=== PATIENT | male | born 1950 | race Caucasian/White ===

== ENCOUNTER 2021-07-27 07:59 | Inpatient (IN) ==
[2021-07-27 07:45] LABS: INR 1.1; Prothrombin Time 12.8 Seconds (9.4-12.1)
[2021-07-27 07:49] LABS: Magnesium 2.2 mg/dL (1.6-2.6)
[2021-07-27 07:50] LABS: BUN/Creatinine Ratio 26 (6-26); Blood Urea Nitrogen 26 mg/dL (8-23); Calcium 8.6 mg/dL (8.6-10.3); Carbon Dioxide 23 mEq/L (23-29); Chloride 98 mEq/L (98-107); Glucose 268 mg/dL (70-105); Osmolality,Calculated 284 (280-300); Potassium 4.2 mEq/L (3.5-5.1); Sodium 130 mEq/L (136-145); eGFR For African Americans > 60 (> 60); eGFR For Non-African Americans > 60 (> 60)
[~2021-07-27 07:59] MED LIST: *HR* Dextrose 50 % in Water (Vial) 50 ML VIAL IVP PRN; Acetaminophen 325 MG TABLET PO PRN; D5% in Water 1,000 ML IVC PRN; Dextrose Gel 15 GM/37.5 ML TUBE PO PRN; Naloxone 0.4 MG/ML INJ IVP PRN; Ondansetron 4 MG/2 ML VIAL IVP PRN
[2021-07-27] MEDS ORDERED: Aspirin 325 MG TABLET PO ONE (08:00)
[2021-07-27 08:06] LABS: Troponin I 0.35 ng/mL (< 0.04)
[2021-07-27 09:43] LABS: Basophils # 0.1 K/mcL (0.0-0.2); Basophils % 1.1 %; Hematocrit 41.6 % (37.5-50.1); Hemoglobin 13.8 g/dL (12.9-16.9); Immature Granulocytes % 4.5 % (0-4); Lymphocytes # 0.6 K/mcL (0.6-4.6); Lymphocytes % 8.2 %; Mean Corpuscular HGB Conc 33.2 g/dL (31.6-35.5); Mean Corpuscular Hemoglobin 30.2 pg (28.0-33.3); Mean Platelet Volume 10.7 fL (9.4-12.4); Monocytes % 13.8 %; Neutrophils # 5.1 K/mcL (1.6-8.9); Platelet Count 191 K/mcL (140-400); Red Blood Count 4.57 M/mcL (4.19-5.50); Red Cell Distribution Width 15.4 % (11.5-14.5); Segmented Neutrophils % 72.4 %
[2021-07-27] MEDS: cefTRIAXone 2,000 MG in Water for inj. (sterile) 20 ML IVP SCH (09:58)
[2021-07-27] MEDS: Azithromycin 500 MG in 0.9 % Sodium Chloride 250 ML IVPB SCH (09:58)
[2021-07-27] MEDS: Furosemide 20 MG/2 ML VIAL IVP SCH ×2 (09:59→16:47)
[2021-07-27] MEDS: Insulin LISPRO 300 UNITS/3 ML VIAL SUBQ SCH ×4 (10:00→21:22)
[2021-07-27] MEDS: Insulin DETEMIR 100 UNIT/ML X5UNITS SUBQ SCH ×2 (10:30→21:23)
[2021-07-27] MEDS ORDERED: Haloperidol Lactate 5 MG/ML VIAL IVP ONE (10:51)
[2021-07-27] MEDS ORDERED: Ipratropium 1 PUFF INHALER IH SCH (12:00)
[2021-07-27] MEDS: Ipratropium 1 PUFF INHALER IH SCH ×5 (12:25→23:56)
[2021-07-27] MEDS: Spironolactone 25 MG TABLET PO SCH (16:43)
[2021-07-27] MEDS: carvediloL 25 MG TABLET PO SCH ×2 (16:43→21:22)
[2021-07-27] MEDS: *HR* Rivaroxaban 10 MG TABLET PO SCH (16:43)
[2021-07-28] MEDS: Ipratropium 1 PUFF INHALER IH SCH ×5 (04:29→21:34)
[2021-07-28] MEDS: Azithromycin 500 MG in 0.9 % Sodium Chloride 250 ML IVPB SCH (09:01)
[2021-07-28] MEDS: Cholecalciferol (D-3) 1,000 UNIT (25MCG) TABLET PO SCH (09:02)
[2021-07-28] MEDS: cefTRIAXone 2,000 MG in Water for inj. (sterile) 20 ML IVP SCH (09:02)
[2021-07-28] MEDS: carvediloL 25 MG TABLET PO SCH ×2 (09:02→15:48)
[2021-07-28] MEDS: Sennosides/Docusate Sodium TABLET PO SCH ×2 (09:02→21:42)
[2021-07-28] MEDS: Aspirin 81 MG TAB.CHEW PO SCH (09:03)
[2021-07-28] MEDS: Gabapentin 300 MG CAPSULE PO SCH ×3 (09:03→21:43)
[2021-07-28] MEDS: Spironolactone 25 MG TABLET PO SCH (09:04)
[2021-07-28] MEDS: Insulin LISPRO 300 UNITS/3 ML VIAL SUBQ SCH ×4 (09:04→21:51)
[2021-07-28] MEDS: Furosemide 20 MG/2 ML VIAL IVP SCH ×2 (09:04→15:48)
[2021-07-28] MEDS: polyethylene glycoL 3350 17 GM POWD.PACK PO SCH (09:21)
[2021-07-28] MEDS: Insulin DETEMIR 100 UNIT/ML X5UNITS SUBQ SCH ×2 (09:26→21:44)
[2021-07-28 09:49] LABS: BUN/Creatinine Ratio 29 (6-26); Blood Urea Nitrogen 26 mg/dL (8-23); Calcium 8.8 mg/dL (8.6-10.3); Carbon Dioxide 24 mEq/L (23-29); Chloride 99 mEq/L (98-107); Glucose 147 mg/dL (70-105); Osmolality,Calculated 281 (280-300); Potassium 4.2 mEq/L (3.5-5.1); Sodium 132 mEq/L (136-145); Troponin I 0.17 ng/mL (< 0.04); eGFR For African Americans > 60 (> 60); eGFR For Non-African Americans > 60 (> 60)
[2021-07-28 11:53] LABS: Basophils # 0.1 K/mcL (0.0-0.2); Basophils % 0.8 %; Hematocrit 45.6 % (37.5-50.1); Hemoglobin 15.3 g/dL (12.9-16.9); Immature Granulocytes % 3.7 % (0-4); Lymphocytes # 0.8 K/mcL (0.6-4.6); Lymphocytes % 6.8 %; Mean Corpuscular HGB Conc 33.6 g/dL (31.6-35.5); Mean Corpuscular Hemoglobin 29.9 pg (28.0-33.3); Mean Corpuscular Volume 89.2 fL (83.0-100.0); Mean Platelet Volume 11.2 fL (9.4-12.4); Monocytes # 0.7 K/mcL (0.0-1.3); Monocytes % 6.1 %; Nucleated Red Blood Cells 0.2 /100 WBC (0); Platelet Count 216 K/mcL (140-400); Red Blood Count 5.11 M/mcL (4.19-5.50); Red Cell Distribution Width 15.1 % (11.5-14.5); Segmented Neutrophils % 82.6 %
[2021-07-28 11:54] LABS: Neutrophils # 9.8 K/mcL (1.6-8.9); White Blood Count 11.8 K/mcL (4.3-11.1)
[2021-07-28] MEDS: Albuterol 2.5 MG/3 ML NEBULIZER IH SCH ×2 (11:59→22:16)
[2021-07-28] MEDS: *HR* Rivaroxaban 10 MG TABLET PO SCH (15:48)
[2021-07-28] MEDS: Finasteride 5 MG TABLET PO SCH (17:43)
[2021-07-28] MEDS ORDERED: traZODone 50 MG TABLET PO PRN (21:00)
[2021-07-28] MEDS: Divalproex (24 HR) 500 MG TABLET PO SCH (21:42)
[2021-07-28] MEDS: Melatonin 3 MG TABLET PO SCH (21:43)
[2021-07-29] MEDS: Ipratropium 1 PUFF INHALER IH SCH ×8 (00:10→19:56)
[2021-07-29 06:24] LABS: Basophils % 0.4 %; Hematocrit 46.6 % (37.5-50.1); Hemoglobin 14.8 g/dL (12.9-16.9); Immature Granulocytes % 2.1 % (0-4); Lymphocytes # 0.5 K/mcL (0.6-4.6); Lymphocytes % 5.4 %; Mean Corpuscular HGB Conc 31.8 g/dL (31.6-35.5); Mean Corpuscular Hemoglobin 29.9 pg (28.0-33.3); Mean Corpuscular Volume 94.1 fL (83.0-100.0); Mean Platelet Volume 10.5 fL (9.4-12.4); Monocytes # 0.7 K/mcL (0.0-1.3); Monocytes % 6.5 %; Neutrophils # 8.6 K/mcL (1.6-8.9); Platelet Count 225 K/mcL (140-400); Red Blood Count 4.95 M/mcL (4.19-5.50); Red Cell Distribution Width 15.4 % (11.5-14.5); Segmented Neutrophils % 85.6 %; White Blood Count 10.1 K/mcL (4.3-11.1)
[2021-07-29 06:42] LABS: Fibrinogen 537 mg/dL (169-393)
[2021-07-29 06:44] LABS: D-Dimer 4768 ng/mLFEU (0-500)
[2021-07-29 07:02] LABS: BUN/Creatinine Ratio 22 (6-26); Blood Urea Nitrogen 24 mg/dL (8-23); Calcium 9.2 mg/dL (8.6-10.3); Carbon Dioxide 31 mEq/L (23-29); Chloride 98 mEq/L (98-107); Glucose 185 mg/dL (70-105); Osmolality,Calculated 287 (280-300); Potassium 4.4 mEq/L (3.5-5.1); Sodium 134 mEq/L (136-145); eGFR For African Americans > 60 (> 60); eGFR For Non-African Americans > 60 (> 60)
[2021-07-29] MEDS: cefTRIAXone 2,000 MG in Water for inj. (sterile) 20 ML IVP SCH (08:31)
[2021-07-29] MEDS: Azithromycin 500 MG in 0.9 % Sodium Chloride 250 ML IVPB SCH (08:31)
[2021-07-29] MEDS: polyethylene glycoL 3350 17 GM POWD.PACK PO SCH (08:31)
[2021-07-29] MEDS: Furosemide 20 MG/2 ML VIAL IVP SCH ×2 (08:32→16:30)
[2021-07-29] MEDS: Spironolactone 25 MG TABLET PO SCH (08:32)
[2021-07-29] MEDS: Gabapentin 300 MG CAPSULE PO SCH ×3 (08:32→22:15)
[2021-07-29] MEDS: Aspirin 81 MG TAB.CHEW PO SCH (08:32)
[2021-07-29] MEDS: Sennosides/Docusate Sodium TABLET PO SCH ×2 (08:32→22:15)
[2021-07-29] MEDS: carvediloL 25 MG TABLET PO SCH ×2 (08:32→16:30)
[2021-07-29] MEDS: Cholecalciferol (D-3) 1,000 UNIT (25MCG) TABLET PO SCH (08:32)
[2021-07-29] MEDS: Insulin DETEMIR 100 UNIT/ML X5UNITS SUBQ SCH ×2 (08:33→22:15)
[2021-07-29] MEDS: Insulin LISPRO 300 UNITS/3 ML VIAL SUBQ SCH ×4 (08:43→22:14)
[2021-07-29] MEDS: Albuterol 2.5 MG/3 ML NEBULIZER IH SCH ×2 (11:41→19:55)
[2021-07-29] MEDS: Finasteride 5 MG TABLET PO SCH (16:30)
[2021-07-29] MEDS: *HR* Rivaroxaban 10 MG TABLET PO SCH (16:30)
[2021-07-29] MEDS: Divalproex (24 HR) 500 MG TABLET PO SCH (22:14)
[2021-07-29] MEDS: Melatonin 3 MG TABLET PO SCH (22:15)
[2021-07-30] MEDS: Albuterol 2.5 MG/3 ML NEBULIZER IH SCH (07:46)
[2021-07-30] MEDS: Ipratropium 1 PUFF INHALER IH SCH (07:46)
[2021-07-30] MEDS: polyethylene glycoL 3350 17 GM POWD.PACK PO SCH (09:19)
[2021-07-30] MEDS: Furosemide 20 MG/2 ML VIAL IVP SCH ×2 (09:20→11:26)
[2021-07-30] MEDS: cefTRIAXone 2,000 MG in Water for inj. (sterile) 20 ML IVP SCH (09:20)
[2021-07-30] MEDS: carvediloL 25 MG TABLET PO SCH (09:21)
[2021-07-30] MEDS: Spironolactone 25 MG TABLET PO SCH (09:21)
[2021-07-30] MEDS: Azithromycin 500 MG in 0.9 % Sodium Chloride 250 ML IVPB SCH ×2 (09:21→11:18)
[2021-07-30] MEDS: Gabapentin 300 MG CAPSULE PO SCH ×2 (09:22→16:13)
[2021-07-30] MEDS: Aspirin 81 MG TAB.CHEW PO SCH (09:22)
[2021-07-30] MEDS: Cholecalciferol (D-3) 1,000 UNIT (25MCG) TABLET PO SCH (09:22)
[2021-07-30] MEDS: Sennosides/Docusate Sodium TABLET PO SCH (09:22)
[2021-07-30] MEDS: Insulin DETEMIR 100 UNIT/ML X5UNITS SUBQ SCH (09:23)
[2021-07-30] MEDS: Insulin LISPRO 300 UNITS/3 ML VIAL SUBQ SCH ×2 (09:30→12:00)
[2021-07-30] MEDS ORDERED: levoFLOXacin 750 MG TABLET PO SCH (11:00)
[2021-07-30 11:06] VITALS: TEMP 97.7
[2021-07-30 15:32] VITALS: BP 138/76; PULSE 78; O2SAT 89
== END 2021-07-30 16:14 | disposition other institution (70) | DRG 177 ==
LOC: 3BNU → SUATTDRO 07:59
PROVIDERS: ADMIT Student in an Organized Health Care Education/Training Program; ATTEND Internal Medicine

== ENCOUNTER 2021-07-31 03:30 | Inpatient (IN) ==
[2021-07-31] MEDS ORDERED: Saline Nasal Spray 44 ML BOTTLE NS PRN (11:50)
[2021-07-31] MEDS ORDERED: Artificial Tears SOLN 15 ML BOTTLE BOTH EYES PRN (11:50)
[2021-07-31] MEDS ORDERED: Ondansetron 4 MG/2 ML VIAL IVP PRN (11:56)
[2021-07-31] MEDS ORDERED: *HR* HYDROcodone/Acet 5/325 mg TABLET PO PRN (11:56)
[2021-07-31] MEDS ORDERED: Naloxone 0.4 MG/ML INJ IVP PRN (11:56)
[2021-07-31] MEDS ORDERED: Acetaminophen 325 MG TABLET PO PRN (11:56)
[2021-07-31] MEDS ORDERED: Melatonin 3 MG TABLET PO PRN (11:56)
[2021-07-31] MEDS: Ipratropium 1 PUFF INHALER IH SCH ×4 (12:00→22:49)
[2021-07-31 13:23] LABS: ABG Base Excess 3 mEq/L (-2 to 3); ABG HCO3 29 mEq/L (21-27); ABG Oxygen Saturation 91 % (95-98); ABG PCO2 47 mmHg (35-45); ABG PO2 61 mmHg (85-104); ABG TCO2 30 mEq/L (20-26)
[2021-07-31 14:35] LABS: Basophils % 0.3 %; Eosinophils % 0.1 %; Hematocrit 45.9 % (37.5-50.1); Hemoglobin 15.2 g/dL (12.9-16.9); Immature Granulocytes % 2.7 % (0-4); Lymphocytes # 0.8 K/mcL (0.6-4.6); Lymphocytes % 8.2 %; Mean Corpuscular HGB Conc 33.1 g/dL (31.6-35.5); Mean Corpuscular Hemoglobin 30.5 pg (28.0-33.3); Mean Corpuscular Volume 92.2 fL (83.0-100.0); Mean Platelet Volume 10.7 fL (9.4-12.4); Monocytes # 0.7 K/mcL (0.0-1.3); Monocytes % 7.4 %; Neutrophils # 7.8 K/mcL (1.6-8.9); Platelet Count 267 K/mcL (140-400); Red Blood Count 4.98 M/mcL (4.19-5.50); Red Cell Distribution Width 15.2 % (11.5-14.5); Segmented Neutrophils % 81.3 %; White Blood Count 9.5 K/mcL (4.3-11.1)
[2021-07-31 14:40] LABS: Adenovirus Not Detected (Not Detect); Coronavirus 229E Not Detected (Not Detect); Coronavirus HKU1 Not Detected (Not Detect); Coronavirus NL63 Not Detected (Not Detect); Coronavirus OC43 Not Detected (Not Detect)
[2021-07-31 14:41] LABS: Bordetella Pertussis Not Detected (Not Detect); Chlamydophila pneumoniae Not Detected (Not Detect); Human Metapneumovirus Not Detected (Not Detect); Human Rhinovirus/Enterovirus Not Detected (Not Detect); Influenza A Subtype 2009 H1 Not Detected (Not Detect); Influenza B Not Detected (Not Detect); Mycoplasma pneumoniae Not Detected (Not Detect); Parainfluenza Virus 1 Not Detected (Not Detect); Parainfluenza Virus 2 Not Detected (Not Detect); Parainfluenza Virus 3 Not Detected (Not Detect); Parainfluenza Virus 4 Not Detected (Not Detect); Respiratory Syncytial Virus Not Detected (Not Detect); SARS-CoV-2 DETECTED (Not Detect)
[2021-07-31 14:43] LABS: INR 1.4; Prothrombin Time 15.8 Seconds (9.4-12.1)
[2021-07-31 14:50] LABS: Alanine Aminotransferase 9 Units/L (7-52); Albumin/Globulin Ratio 0.7 (1.1-2.2); Alkaline Phosphatase 52 Units/L (34-104); Aspartate Amino Transferase 18 Units/L (13-39); BUN/Creatinine Ratio 34 (6-26); Bilirubin,Total 0.4 mg/dL (0.3-1.0); Blood Urea Nitrogen 35 mg/dL (8-23); C-Reactive Protein 141 mg/L (Less than 10); Calcium 9.4 mg/dL (8.6-10.3); Carbon Dioxide 28 mEq/L (23-29); Chloride 95 mEq/L (98-107); Globulin 4.2 g/dL (2.4-3.5); Glucose 136 mg/dL (70-105); Lactate Dehydrogenase 265 Units/L (140-271); Magnesium 2.2 mg/dL (1.6-2.6); Osmolality,Calculated 284 (280-300); Phosphorous 3.8 mg/dL (2.7-4.5); Potassium 4.5 mEq/L (3.5-5.1); Sodium 132 mEq/L (136-145); Total Protein 7.2 g/dL (6.4-8.9); eGFR For African Americans > 60 (> 60); eGFR For Non-African Americans > 60 (> 60)
[2021-07-31] MEDS ORDERED: *HR* LORazepam 2 MG/ML VIAL IVP ONE (14:58)
[2021-07-31 15:05] LABS: Ferritin 288 ng/mL (20-250)
[2021-07-31] MEDS ORDERED: D5% in Water 1,000 ML IVC PRN (18:39)
[2021-07-31] MEDS ORDERED: Dextrose Gel 15 GM/37.5 ML TUBE PO PRN ×2 (18:39)
[2021-07-31] MEDS ORDERED: *HR* Dextrose 50 % in Water (Syg) 50 ML SYRINGE IVP PRN (18:39)
[2021-07-31] MEDS ORDERED: traZODone 50 MG TABLET PO PRN (19:29)
[2021-07-31] MEDS ORDERED: Remdesivir 200 MG in 0.9 % Sodium Chloride 100 ML IVPB ONE (19:30)
[2021-07-31] MEDS: Dexmedetomidine HCl 400 MCG/100 ML MLS IVC SCH (19:52)
[2021-07-31] MEDS: Cholecalciferol (D-3) 1,000 UNIT (25MCG) TABLET PO SCH (19:56)
[2021-07-31] MEDS: Chlorhexidine Rinse 15 ML MOUTHWASH MM SCH (19:56)
[2021-07-31] MEDS ORDERED: Furosemide 20 MG/2 ML VIAL IVP SCH (20:00)
[2021-07-31] MEDS: Budesonide/Formoterol 160/4.5 1 PUFF INH IH SCH (20:10)
[2021-07-31] MEDS: Insulin LISPRO 300 UNITS/3 ML VIAL SUBQ SCH (21:54)
[2021-07-31] MEDS: Divalproex (24 HR) 500 MG TABLET PO SCH (22:09)
[2021-08-01] MEDS: Ipratropium 1 PUFF INHALER IH SCH ×6 (03:46→23:52)
[2021-08-01] MEDS: Dexmedetomidine HCl 400 MCG/100 ML MLS IVC SCH ×4 (06:19→20:08)
[2021-08-01] MEDS ORDERED: Isovue-370 500 ML BOTTLE IVP ONE (07:37)
[2021-08-01 08:20] LABS: Basophils % 0.7 %; Hematocrit 49.5 % (37.5-50.1); Hemoglobin 15.8 g/dL (12.9-16.9); Immature Granulocytes % 4.1 % (0-4); Lymphocytes # 0.5 K/mcL (0.6-4.6); Lymphocytes % 7.4 %; Mean Corpuscular HGB Conc 31.9 g/dL (31.6-35.5); Mean Corpuscular Hemoglobin 29.4 pg (28.0-33.3); Mean Platelet Volume 10.7 fL (9.4-12.4); Monocytes # 0.2 K/mcL (0.0-1.3); Monocytes % 3.8 %; Neutrophils # 5.1 K/mcL (1.6-8.9); Platelet Count 316 K/mcL (140-400); Red Blood Count 5.38 M/mcL (4.19-5.50); Red Cell Distribution Width 15.1 % (11.5-14.5); White Blood Count 6.1 K/mcL (4.3-11.1)
[2021-08-01 08:31] LABS: INR 1.2
[2021-08-01 08:36] LABS: Alanine Aminotransferase 8 Units/L (7-52); Albumin 3.1 g/dL (3.5-5.7); Albumin/Globulin Ratio 0.7 (1.1-2.2); Alkaline Phosphatase 61 Units/L (34-104); Aspartate Amino Transferase 16 Units/L (13-39); BUN/Creatinine Ratio 38 (6-26); Bilirubin,Total 0.4 mg/dL (0.3-1.0); Blood Urea Nitrogen 42 mg/dL (8-23); Calcium 9.7 mg/dL (8.6-10.3); Carbon Dioxide 29 mEq/L (23-29); Chloride 93 mEq/L (98-107); Globulin 4.4 g/dL (2.4-3.5); Glucose 237 mg/dL (70-105); Lactate Dehydrogenase 251 Units/L (140-271); Magnesium 2.5 mg/dL (1.6-2.6); Osmolality,Calculated 294 (280-300); Sodium 133 mEq/L (136-145); Total Protein 7.5 g/dL (6.4-8.9); eGFR For African Americans > 60 (> 60); eGFR For Non-African Americans > 60 (> 60)
[2021-08-01 08:53] LABS: Ferritin 340 ng/mL (20-250)
[2021-08-01 09:05] LABS: Folate > 22.3 ng/mL (3.0-16.0); Vitamin B12 687 pg/mL (250-1100)
[2021-08-01] MEDS: Insulin LISPRO 300 UNITS/3 ML VIAL SUBQ SCH ×4 (09:05→21:38)
[2021-08-01] MEDS: Multivit/Ca/Min/Fe/FA 1 TAB TABLET PO SCH ×2 (09:09→10:55)
[2021-08-01] MEDS: Cholecalciferol (D-3) 1,000 UNIT (25MCG) TABLET PO SCH ×2 (09:09→10:55)
[2021-08-01] MEDS: carvediloL 25 MG TABLET PO SCH ×3 (09:09→15:14)
[2021-08-01] MEDS: Chlorhexidine Rinse 15 ML MOUTHWASH MM SCH ×3 (09:10→20:57)
[2021-08-01] MEDS: Furosemide 20 MG/2 ML VIAL IVP SCH ×3 (09:10→21:39)
[2021-08-01] MEDS: Bacitracin/PolymyxinB OINT 14.17 GM TUBE TP SCH (09:10)
[2021-08-01] MEDS: Dexamethasone Sodium Phos/PF 10 MG/ML VIAL IVP SCH (09:10)
[2021-08-01] MEDS: Albumin 25% 25gram/100mL 25 GM/100 ML IV.SOLN IVPB SCH ×2 (09:11→14:22)
[2021-08-01] MEDS: Aspirin 81 MG TAB.CHEW PO SCH (09:12)
[2021-08-01] MEDS: Aspirin Enteric Coated 81 MG Tablet PO SCH ×2 (09:14→10:55)
[2021-08-01] MEDS: Spironolactone 25 MG TABLET PO SCH ×2 (09:17→10:55)
[2021-08-01 09:21] LABS: C-Reactive Protein 141 mg/L (Less than 10)
[2021-08-01 10:27] LABS: Estimated Average Glucose 272 mg/dl; Hemoglobin A1C 11.1 %
[2021-08-01] MEDS: Budesonide/Formoterol 160/4.5 1 PUFF INH IH SCH ×2 (10:39→20:31)
[2021-08-01] MEDS: *HR* Labetalol 20 MG/4 ML SYRINGE IVP PRN ×2 (11:47→18:53)
[2021-08-01 12:01] LABS: Troponin I 0.08 ng/mL (< 0.04)
[2021-08-01] MEDS: Finasteride 5 MG TABLET PO SCH (16:33)
[2021-08-01] MEDS ORDERED: *HR* Rivaroxaban 10 MG TABLET PO SCH (17:00)
[2021-08-01] MEDS: *HR* Enoxaparin 120 MG/0.8 ML SYRINGE SQ SCH (17:10)
[2021-08-01] MEDS: Remdesivir 100 MG in 0.9 % Sodium Chloride 100 ML IVPB SCH (17:12)
[2021-08-01] MEDS ORDERED: *HR* Labetalol 20 MG/4 ML SYRINGE IVP ONE (20:20)
[2021-08-01] MEDS: Divalproex (24 HR) 500 MG TABLET PO SCH (20:57)
[2021-08-01] MEDS: niCARdipine 40 MG/200 ML MLS IVC SCH (22:51)
[2021-08-02] MEDS: Dexmedetomidine HCl 400 MCG/100 ML MLS IVC SCH ×3 (00:43→19:57)
[2021-08-02] MEDS: niCARdipine 40 MG/200 ML MLS IVC SCH ×3 (04:30→19:43)
[2021-08-02] MEDS: Ipratropium 1 PUFF INHALER IH SCH ×6 (05:15→23:54)
[2021-08-02 05:34] LABS: Basophils # 0.1 K/mcL (0.0-0.2); Basophils % 0.8 %; Hematocrit 48.2 % (37.5-50.1); Hemoglobin 15.7 g/dL (12.9-16.9); Immature Granulocytes % 3.8 % (0-4); Lymphocytes # 0.4 K/mcL (0.6-4.6); Lymphocytes % 5.7 %; Mean Corpuscular HGB Conc 32.6 g/dL (31.6-35.5); Mean Corpuscular Hemoglobin 29.3 pg (28.0-33.3); Mean Corpuscular Volume 90.1 fL (83.0-100.0); Monocytes # 0.6 K/mcL (0.0-1.3); Neutrophils # 5.3 K/mcL (1.6-8.9); Platelet Count 355 K/mcL (140-400); Red Blood Count 5.35 M/mcL (4.19-5.50); Red Cell Distribution Width 14.6 % (11.5-14.5); Segmented Neutrophils % 80.7 %; White Blood Count 6.5 K/mcL (4.3-11.1)
[2021-08-02 05:42] LABS: INR 1.2; Prothrombin Time 13.5 Seconds (9.4-12.1)
[2021-08-02 05:54] LABS: Alanine Aminotransferase 6 Units/L (7-52); Albumin 3.7 g/dL (3.5-5.7); Alkaline Phosphatase 56 Units/L (34-104); Aspartate Amino Transferase 19 Units/L (13-39); BUN/Creatinine Ratio 52 (6-26); Bilirubin,Total 0.5 mg/dL (0.3-1.0); Blood Urea Nitrogen 49 mg/dL (8-23); Carbon Dioxide 25 mEq/L (23-29); Chloride 95 mEq/L (98-107); Globulin 3.8 g/dL (2.4-3.5); Glucose 382 mg/dL (70-105); Lactate Dehydrogenase 254 Units/L (140-271); Magnesium 2.6 mg/dL (1.6-2.6); Osmolality,Calculated 303 (280-300); Phosphorous 2.6 mg/dL (2.7-4.5); Potassium 4.9 mEq/L (3.5-5.1); Sodium 132 mEq/L (136-145); Total Protein 7.5 g/dL (6.4-8.9); eGFR For African Americans > 60 (> 60); eGFR For Non-African Americans > 60 (> 60)
[2021-08-02] MEDS: Levothyroxine Sodium 100 MCG VIAL IVP SCH (05:58)
[2021-08-02] MEDS: Pantoprazole 40 MG VIAL IVP SCH (05:58)
[2021-08-02] MEDS: *HR* Enoxaparin 120 MG/0.8 ML SYRINGE SQ SCH (05:59)
[2021-08-02 06:11] LABS: Ferritin 297 ng/mL (20-250)
[2021-08-02] MEDS: Acetaminophen 650 MG RECTAL SUPP RC PRN (06:25)
[2021-08-02] MEDS: Budesonide/Formoterol 160/4.5 1 PUFF INH IH SCH ×2 (08:28→20:43)
[2021-08-02] MEDS: Furosemide 20 MG/2 ML VIAL IVP SCH ×3 (08:40→21:49)
[2021-08-02] MEDS: Insulin LISPRO 300 UNITS/3 ML VIAL SUBQ SCH ×4 (08:40→21:50)
[2021-08-02] MEDS: Chlorhexidine Rinse 15 ML MOUTHWASH MM SCH ×2 (09:05→21:48)
[2021-08-02] MEDS: carvediloL 25 MG TABLET PO SCH ×2 (09:05→16:18)
[2021-08-02] MEDS: Spironolactone 25 MG TABLET PO SCH (09:05)
[2021-08-02] MEDS: Aspirin 81 MG TAB.CHEW PO SCH (09:05)
[2021-08-02] MEDS: Aspirin Enteric Coated 81 MG Tablet PO SCH (09:05)
[2021-08-02] MEDS: Cholecalciferol (D-3) 1,000 UNIT (25MCG) TABLET PO SCH (09:06)
[2021-08-02] MEDS: Multivit/Ca/Min/Fe/FA 1 TAB TABLET PO SCH (09:06)
[2021-08-02] MEDS: Dexamethasone Sodium Phos/PF 10 MG/ML VIAL IVP SCH (09:07)
[2021-08-02 11:24] LABS: C-Reactive Protein 75 mg/L (Less than 10)
[2021-08-02] MEDS: Bacitracin/PolymyxinB OINT 14.17 GM TUBE TP SCH (13:18)
[2021-08-02] MEDS ORDERED: *HR* Metoprolol 5 MG/5 ML VIAL IVP PRN (14:07)
[2021-08-02] MEDS ORDERED: Insulin LISPRO 300 UNITS/3 ML VIAL SUBQ SCH (14:15)
[2021-08-02] MEDS: Valproic Acid INJ 500 MG in 0.9 % Sodium Chloride 100 ML IVPB SCH ×2 (16:17→23:37)
[2021-08-02] MEDS: Finasteride 5 MG TABLET PO SCH (16:18)
[2021-08-02] MEDS: Remdesivir 100 MG in 0.9 % Sodium Chloride 100 ML IVPB SCH (17:51)
[2021-08-02] MEDS: *HR* Enoxaparin 150 MG/ML SYRINGE SQ SCH (17:51)
[2021-08-03] MEDS: niCARdipine 40 MG/200 ML MLS IVC SCH ×3 (00:24→13:04)
[2021-08-03] MEDS: Dexmedetomidine HCl 400 MCG/100 ML MLS IVC SCH ×5 (00:25→22:04)
[2021-08-03] MEDS: Insulin LISPRO 300 UNITS/3 ML VIAL SUBQ SCH ×4 (00:46→17:09)
[2021-08-03 01:26] LABS: Basophils % 0.6 %; Hemoglobin 15.4 g/dL (12.9-16.9); Immature Granulocytes % 3.9 % (0-4); Lymphocytes # 0.4 K/mcL (0.6-4.6); Lymphocytes % 5.8 %; Mean Corpuscular HGB Conc 32.1 g/dL (31.6-35.5); Mean Corpuscular Hemoglobin 29.2 pg (28.0-33.3); Mean Corpuscular Volume 91.1 fL (83.0-100.0); Mean Platelet Volume 11.1 fL (9.4-12.4); Monocytes # 0.5 K/mcL (0.0-1.3); Monocytes % 7.6 %; Neutrophils # 5.6 K/mcL (1.6-8.9); Platelet Count 354 K/mcL (140-400); Red Blood Count 5.27 M/mcL (4.19-5.50); Red Cell Distribution Width 14.8 % (11.5-14.5); Segmented Neutrophils % 82.1 %; White Blood Count 6.8 K/mcL (4.3-11.1)
[2021-08-03 01:40] LABS: INR 1.3; Prothrombin Time 14.1 Seconds (9.4-12.1)
[2021-08-03 02:17] LABS: Alanine Aminotransferase 7 Units/L (7-52); Albumin 3.3 g/dL (3.5-5.7); Albumin/Globulin Ratio 0.9 (1.1-2.2); Alkaline Phosphatase 56 Units/L (34-104); Aspartate Amino Transferase 19 Units/L (13-39); BUN/Creatinine Ratio 55 (6-26); Bilirubin,Total 0.5 mg/dL (0.3-1.0); Blood Urea Nitrogen 57 mg/dL (8-23); C-Reactive Protein 41 mg/L (Less than 10); Calcium 9.6 mg/dL (8.6-10.3); Carbon Dioxide 19 mEq/L (23-29); Chloride 103 mEq/L (98-107); Ferritin 565 ng/mL (20-250); Globulin 3.8 g/dL (2.4-3.5); Glucose 414 mg/dL (70-105); Lactate Dehydrogenase 396 Units/L (140-271); Magnesium 2.7 mg/dL (1.6-2.6); Osmolality,Calculated 317 (280-300); Phosphorous 2.6 mg/dL (2.7-4.5); Potassium 4.6 mEq/L (3.5-5.1); Sodium 137 mEq/L (136-145); Total Protein 7.1 g/dL (6.4-8.9); eGFR For African Americans > 60 (> 60); eGFR For Non-African Americans > 60 (> 60)
[2021-08-03] MEDS: Ipratropium 1 PUFF INHALER IH SCH ×6 (03:51→23:40)
[2021-08-03] MEDS: *HR* Enoxaparin 150 MG/ML SYRINGE SQ SCH ×2 (06:04→17:08)
[2021-08-03] MEDS: Pantoprazole 40 MG VIAL IVP SCH (06:05)
[2021-08-03] MEDS: Levothyroxine Sodium 100 MCG VIAL IVP SCH (06:05)
[2021-08-03] MEDS: Budesonide/Formoterol 160/4.5 1 PUFF INH IH SCH ×2 (08:01→19:48)
[2021-08-03] MEDS: Furosemide 20 MG/2 ML VIAL IVP SCH ×3 (09:59→22:05)
[2021-08-03] MEDS: Dexamethasone Sodium Phos/PF 10 MG/ML VIAL IVP SCH (09:59)
[2021-08-03] MEDS: Spironolactone 25 MG TABLET PO SCH (10:00)
[2021-08-03] MEDS: Chlorhexidine Rinse 15 ML MOUTHWASH MM SCH ×2 (10:00→22:15)
[2021-08-03] MEDS: Aspirin Enteric Coated 81 MG Tablet PO SCH (10:00)
[2021-08-03] MEDS: Valproic Acid INJ 500 MG in 0.9 % Sodium Chloride 100 ML IVPB SCH ×2 (10:00→17:09)
[2021-08-03] MEDS: carvediloL 25 MG TABLET PO SCH ×2 (10:00→17:10)
[2021-08-03] MEDS: Multivit/Ca/Min/Fe/FA 1 TAB TABLET PO SCH (10:01)
[2021-08-03] MEDS: Cholecalciferol (D-3) 1,000 UNIT (25MCG) TABLET PO SCH ×2 (10:01)
[2021-08-03] MEDS: Bacitracin/PolymyxinB OINT 14.17 GM TUBE TP SCH (13:04)
[2021-08-03] MEDS: Finasteride 5 MG TABLET PO SCH (17:10)
[2021-08-03] MEDS: Remdesivir 100 MG in 0.9 % Sodium Chloride 100 ML IVPB SCH (22:00)
[2021-08-03] MEDS: Insulin DETEMIR 100 UNIT/ML X5UNITS SUBQ SCH (22:05)
[2021-08-04] MEDS: Valproic Acid INJ 500 MG in 0.9 % Sodium Chloride 100 ML IVPB SCH ×3 (00:28→16:44)
[2021-08-04] MEDS: Insulin LISPRO 300 UNITS/3 ML VIAL SUBQ SCH ×4 (00:28→18:53)
[2021-08-04] MEDS: Dexmedetomidine HCl 400 MCG/100 ML MLS IVC SCH ×3 (03:11→19:00)
[2021-08-04] MEDS: Ipratropium 1 PUFF INHALER IH SCH ×5 (03:43→20:32)
[2021-08-04] MEDS: *HR* Enoxaparin 150 MG/ML SYRINGE SQ SCH ×2 (05:27→18:54)
[2021-08-04] MEDS: Pantoprazole 40 MG VIAL IVP SCH (05:28)
[2021-08-04] MEDS: Levothyroxine Sodium 100 MCG VIAL IVP SCH (05:28)
[2021-08-04 08:21] LABS: Alanine Aminotransferase 7 Units/L (7-52); Albumin 3.3 g/dL (3.5-5.7); Alkaline Phosphatase 59 Units/L (34-104); Aspartate Amino Transferase 26 Units/L (13-39); BUN/Creatinine Ratio 60 (6-26); Bilirubin,Direct 0.1 mg/dL (0.0-0.2); Bilirubin,Indirect 0.5 mg/dL (0.0-1.0); Bilirubin,Total 0.6 mg/dL (0.3-1.0); Blood Urea Nitrogen 58 mg/dL (8-23); Calcium 9.9 mg/dL (8.6-10.3); Carbon Dioxide 20 mEq/L (23-29); Chloride 106 mEq/L (98-107); Globulin 3.4 g/dL (2.4-3.5); Glucose 367 mg/dL (70-105); Osmolality,Calculated 323 (280-300); Potassium 4.2 mEq/L (3.5-5.1); Sodium 141 mEq/L (136-145); Total Protein 6.7 g/dL (6.4-8.9); eGFR For African Americans > 60 (> 60); eGFR For Non-African Americans > 60 (> 60)
[2021-08-04] MEDS: niCARdipine 40 MG/200 ML MLS IVC SCH ×2 (08:37→16:20)
[2021-08-04] MEDS: Cholecalciferol (D-3) 1,000 UNIT (25MCG) TABLET PO SCH ×4 (08:55→09:11)
[2021-08-04] MEDS: carvediloL 25 MG TABLET PO SCH ×3 (08:55→16:29)
[2021-08-04] MEDS: Spironolactone 25 MG TABLET PO SCH ×2 (08:56→09:10)
[2021-08-04] MEDS: Aspirin Enteric Coated 81 MG Tablet PO SCH ×2 (08:56→09:11)
[2021-08-04] MEDS: Multivit/Ca/Min/Fe/FA 1 TAB TABLET PO SCH ×2 (08:56→09:11)
[2021-08-04] MEDS: Chlorhexidine Rinse 15 ML MOUTHWASH MM SCH ×2 (08:57→21:06)
[2021-08-04] MEDS: Dexamethasone Sodium Phos/PF 10 MG/ML VIAL IVP SCH (08:57)
[2021-08-04] MEDS: Furosemide 20 MG/2 ML VIAL IVP SCH ×3 (08:58→21:06)
[2021-08-04] MEDS: Bacitracin/PolymyxinB OINT 14.17 GM TUBE TP SCH (08:58)
[2021-08-04] MEDS: Budesonide/Formoterol 160/4.5 1 PUFF INH IH SCH ×2 (11:00→20:32)
[2021-08-04] MEDS ORDERED: Albumin 25% 25gram/100mL 25 GM/100 ML IV.SOLN IVPB ONE (16:27)
[2021-08-04] MEDS: Finasteride 5 MG TABLET PO SCH (18:54)
[2021-08-04] MEDS: Remdesivir 100 MG in 0.9 % Sodium Chloride 100 ML IVPB SCH (19:46)
[2021-08-04] MEDS: Insulin DETEMIR 100 UNIT/ML X5UNITS SUBQ SCH (21:06)
[2021-08-05] MEDS: Ipratropium 1 PUFF INHALER IH SCH ×5 (00:03→21:55)
[2021-08-05] MEDS: niCARdipine 40 MG/200 ML MLS IVC SCH (00:30)
[2021-08-05] MEDS: Valproic Acid INJ 500 MG in 0.9 % Sodium Chloride 100 ML IVPB SCH ×2 (01:07→10:24)
[2021-08-05] MEDS: Insulin LISPRO 300 UNITS/3 ML VIAL SUBQ SCH ×4 (01:08→18:17)
[2021-08-05] MEDS: Levothyroxine Sodium 100 MCG VIAL IVP SCH (06:37)
[2021-08-05] MEDS: Pantoprazole 40 MG VIAL IVP SCH (06:37)
[2021-08-05] MEDS: *HR* Enoxaparin 150 MG/ML SYRINGE SQ SCH ×2 (06:38→18:18)
[2021-08-05] MEDS: Budesonide/Formoterol 160/4.5 1 PUFF INH IH SCH ×2 (08:18→21:56)
[2021-08-05] MEDS ORDERED: Dexamethasone Sodium Phos/PF 10 MG/ML VIAL IVP SCH (09:00)
[2021-08-05] MEDS: Aspirin Enteric Coated 81 MG Tablet PO SCH (10:21)
[2021-08-05] MEDS: Cholecalciferol (D-3) 1,000 UNIT (25MCG) TABLET PO SCH ×2 (10:21→10:58)
[2021-08-05] MEDS: Multivit/Ca/Min/Fe/FA 1 TAB TABLET PO SCH (10:21)
[2021-08-05] MEDS: Spironolactone 25 MG TABLET PO SCH (10:23)
[2021-08-05] MEDS: carvediloL 25 MG TABLET PO SCH ×2 (10:23→17:35)
[2021-08-05] MEDS: Chlorhexidine Rinse 15 ML MOUTHWASH MM SCH ×2 (10:23→20:15)
[2021-08-05] MEDS: Furosemide 20 MG/2 ML VIAL IVP SCH (10:24)
[2021-08-05] MEDS: Bacitracin/PolymyxinB OINT 14.17 GM TUBE TP SCH (10:58)
[2021-08-05] MEDS: Dexmedetomidine HCl 400 MCG/100 ML MLS IVC SCH (11:25)
[2021-08-05 11:38] LABS: Basophils % 0.3 %; Hematocrit 50.3 % (37.5-50.1); Hemoglobin 15.9 g/dL (12.9-16.9); Immature Granulocytes % 1.7 % (0-4); Lymphocytes # 0.3 K/mcL (0.6-4.6); Lymphocytes % 5.1 %; Mean Corpuscular HGB Conc 31.6 g/dL (31.6-35.5); Mean Corpuscular Hemoglobin 29.7 pg (28.0-33.3); Mean Platelet Volume 11.6 fL (9.4-12.4); Monocytes # 0.7 K/mcL (0.0-1.3); Monocytes % 10.1 %; Neutrophils # 5.4 K/mcL (1.6-8.9); Platelet Count 344 K/mcL (140-400); Red Blood Count 5.35 M/mcL (4.19-5.50); Red Cell Distribution Width 15.6 % (11.5-14.5); Segmented Neutrophils % 82.8 %; White Blood Count 6.5 K/mcL (4.3-11.1)
[2021-08-05 11:59] LABS: Fibrinogen 424 mg/dL (169-393)
[2021-08-05 12:02] LABS: D-Dimer 5300 ng/mLFEU (0-500)
[2021-08-05 12:07] LABS: Alanine Aminotransferase 12 Units/L (7-52); Albumin 3.4 g/dL (3.5-5.7); Alkaline Phosphatase 53 Units/L (34-104); Aspartate Amino Transferase 30 Units/L (13-39); BUN/Creatinine Ratio 52 (6-26); Blood Urea Nitrogen 67 mg/dL (8-23); C-Reactive Protein 11 mg/L (Less than 10); Calcium 9.9 mg/dL (8.6-10.3); Carbon Dioxide 26 mEq/L (23-29); Chloride 108 mEq/L (98-107); Globulin 3.3 g/dL (2.4-3.5); Glucose 477 mg/dL (70-105); Lactate Dehydrogenase 419 Units/L (140-271); Osmolality,Calculated 340 (280-300); Potassium 4.1 mEq/L (3.5-5.1); Sodium 145 mEq/L (136-145); Total Protein 6.7 g/dL (6.4-8.9); eGFR For African Americans > 60 (> 60); eGFR For Non-African Americans 56 (> 60)
[2021-08-05 12:26] LABS: Ferritin 1498 ng/mL (20-250)
[2021-08-05] MEDS ORDERED: Divalproex (24 HR) 500 MG TABLET PO SCH (16:00)
[2021-08-05] MEDS ORDERED: Furosemide 40 MG TABLET PO SCH (17:00)
[2021-08-05] MEDS: Finasteride 5 MG TABLET PO SCH (18:18)
[2021-08-05] MEDS: Valproic Acid Oral Soln 250 MG/5 ML UDC PO SCH (18:18)
[2021-08-05 19:37] LABS: Bilirubin,Urine Negative (Negative); Blood,Urine Large (Negative); Clarity,Urine Turbid (Clear); Color,Urine Light-Red (Yellow); Glucose,Urine (UA) 500 mg/dL (Normal); Ketones,Urine Trace mg/dL (Negative); Leukocyte Esterase,Urine Trace (Negative); Nitrite,Urine Negative (Negative); Protein,Urine 100 mg/dL (Neg-Trace); Specific Gravity,Urine 1.022 (1.010-1.025); Urobilinogen,Urine Normal (Normal)
[2021-08-05] MEDS ORDERED: Insulin DETEMIR 100 UNIT/ML X5UNITS SUBQ SCH (21:00)
[2021-08-05] MEDS: Acetaminophen 650 MG RECTAL SUPP RC PRN (22:52)
[2021-08-06] MEDS: Dexmedetomidine HCl 400 MCG/100 ML MLS IVC SCH (00:57)
[2021-08-06 01:51] VITALS: O2SAT 93
[2021-08-06] MEDS: Valproic Acid Oral Soln 250 MG/5 ML UDC PO SCH (02:58)
[2021-08-06 03:41] LABS: Basophils % 0.1 %; Hematocrit 49.8 % (37.5-50.1); Immature Granulocytes % 1.7 % (0-4); Lymphocytes # 0.5 K/mcL (0.6-4.6); Lymphocytes % 5.1 %; Mean Corpuscular HGB Conc 32.1 g/dL (31.6-35.5); Mean Corpuscular Hemoglobin 30.1 pg (28.0-33.3); Mean Corpuscular Volume 93.6 fL (83.0-100.0); Mean Platelet Volume 12.1 fL (9.4-12.4); Neutrophils # 7.2 K/mcL (1.6-8.9); Platelet Count 358 K/mcL (140-400); Red Blood Count 5.32 M/mcL (4.19-5.50); Red Cell Distribution Width 15.5 % (11.5-14.5); Segmented Neutrophils % 82.1 %; White Blood Count 8.8 K/mcL (4.3-11.1)
[2021-08-06 03:46] LABS: Albumin 3.2 g/dL (3.5-5.7); Bilirubin,Total 1.4 mg/dL (0.3-1.0); Calcium 10.2 mg/dL (8.6-10.3); Globulin 3.1 g/dL (2.4-3.5); Potassium 4.6 mEq/L (3.5-5.1); Total Protein 6.3 g/dL (6.4-8.9)
[2021-08-06 03:53] VITALS: BP 100/74; PULSE 111; TEMP 100.6
[2021-08-06] MEDS: Ipratropium 1 PUFF INHALER IH SCH (04:05)
[2021-08-06] MEDS: Acetaminophen 650 MG RECTAL SUPP RC PRN (05:42)
[2021-08-06] MEDS: *HR* Enoxaparin 150 MG/ML SYRINGE SQ SCH (05:43)
[2021-08-06] MEDS: Pantoprazole 40 MG VIAL IVP SCH (05:43)
[2021-08-06] MEDS ORDERED: Insulin LISPRO 300 UNITS/3 ML VIAL SUBQ SCH ×4 (07:30→21:00)
== END 2021-08-06 12:33 | disposition expired | DRG 177 ==
LOC: 2ANU → SUATTDRO 09:53 → 3NENU 18:52 → SUATTDRO 20:47
PROVIDERS: ADMIT Internal Medicine; ATTEND Family Medicine